=== PATIENT | male | born 1995 ===

== ENCOUNTER 2017-08-23 16:46 | Emergency (ER) | payer BC ==
[2017-08-23 16:58] VITALS: BP 161/88; PULSE 87; RESP 16; TEMP 97.8; O2SAT 100
[2017-08-23] MEDS ORDERED: Tdap Vaccine 0.5 ml Vial (10-64 yrs) IM ONE ×2 (17:20→18:05)
[2017-08-23] MEDS ORDERED: Lidocaine 1% Inj (20ml) IJ STA (17:53)
--- NOTE | 2017-08-23 17:57 | ED PDOC ---
HPI: Head Injury Time Seen by Provider: 08/23/17 17:01 Chief Complaint (Nursing): Abnormal Skin Integrity Chief Complaint (Provider): Abnormal Skin Integrity History Per: Patient, Family (mother) History/Exam Limitations: no limitations Onset/Duration Of Symptoms: Hrs (2), Sudden Onset Additional Complaint(s): 22 year old male presents to the emergency department with mother for an evaluation of a right eyebrow laceration sustained when he accidentally hit his head on a corner wall while playing with his dog. Denies any headache, prior head injury, loss of consciousness, nausea, vomiting or dizziness. Patient states he is not up-to-date with tetanus shot. Per mother at bedside, patient is acting normal. PMD: none provided Past Medical History Reviewed: Historical Data, Nursing Documentation, Vital Signs Vital Signs: Last Vital Signs Temp 97.8 F 08/23/17 16:55 Pulse 87 08/23/17 16:55 Resp 16 08/23/17 16:55 BP 161/88 H 08/23/17 16:55 Pulse Ox 100 08/23/17 16:55 - Medical History PMH: No Chronic Diseases Denies: Chronic Kidney Disease - Surgical History Surgical History: No Surg Hx - Family History Family History: States: Unknown Family Hx - Living Arrangements Living Arrangements: With Family - Social History Current smoker - smoking cessation education provided: No Ex-Smoker (has not smoked in the last 12 months): No Alcohol: None Drugs: Denies - Immunization History Hx Tetanus Toxoid Vaccination: No (unknown) - Allergies Allergies/Adverse Reactions: Allergies Allergy/AdvReac Type Severity Reaction Status Date / Time No Known Allergies Allergy Verified 02/20/14 19:40 Review of Systems ROS Statement: Except As Marked, All Systems Reviewed And Found Negative Eyes: Negative for: Vision Change Gastrointestinal: Negative for: Nausea, Vomiting Neurological: Positive for: Other (right eyebrow laceration). Negative for: Headache, Dizziness (or LOC) Physical Exam - Reviewed Nursing Documentation Reviewed: Yes Vital Signs Reviewed: Yes - Physical Exam Appears: Positive for: Well, Non-toxic, No Acute Distress Head Exam: Positive for: ATRAUMATIC, NORMOCEPHALIC Skin: Negative for: Normal Color, Warm, Dry Eye Exam: Positive for: Normal appearance, EOMI, PERRL. Negative for: Nystagmus , Periorbital swelling, Periorbital tenderness, Conjunctival injection Neck: Positive for: Painless ROM, Supple Cardiovascular/Chest: Positive for: Regular Rate, Rhythm Respiratory: Positive for: Normal Breath Sounds. Negative for: Decreased Breath Sounds, Accessory Muscle Use, Respiratory Distress Gastrointestinal/Abdominal: Positive for: Soft. Negative for: Tenderness, Mass , Distended, Guarding Extremity: Negative for: Deformity Neurologic/Psych: Positive for: Alert, supervisor record press II-XII (intact), Oriented (x3), Mood/ Affect (appropriate), Gait (steady), Other (1cm laceration to lateral aspect of right eyebrow (-) surrounding ecchymosis (-) active bleeding (-) palpable bone deformity). Negative for: Motor/Sensory Deficits, Aphasia, Facial Droop - ECG O2 Sat by Pulse Oximetry: 100 (RA) Pulse Ox Interpretation: Normal Medical Decision Making Medical Decision Making: Initial Impression: Laceration S/P head injury Initial Plan: * Adacel 0.5ml IM * Lidocaine 1% 2ml IJ Time: 172 --Provider explained benefits and risks of closing wound with either Dermabond or stitches. Patient stated he preferred to have stitches with verbal consent obtained. Time: 1819 --Laceration repair performed. See procedure note. Time: 183 --Upon provider reevaluation, patient is feeling better, medically stable and requires no further treatment in the ED at this time. Neuro examination remains nonfocal. Patient will be discharged home. Counseling was provided and all questions were answered regarding diagnosis and need for follow up with PMD or ED for suture removal in 5 days. There is agreement to discharge plan. Return if symptoms persist or worsen. Clinical Impression: Facial Laceration Scribe Attestation: Documented by Priscila Abdi, acting as a scribe for Rosy Herbert PA-C. Provider Scribe Attestation: All medical record entries made by the Scribe were at my direction and personally dictated by me. I have reviewed the chart and agree that the record accurately reflects my personal performance of the history, physical exam, medical decision making, and the department course for this patient. I have also personally directed, reviewed, and agree with the discharge instructions and disposition. Procedures - Time-Out Type of Procedure: laceration repair Site of Procedure: right eyebrow Correct Patient (with visual ID + MR# on ID Band): Yes Correct Procedure: Yes Correct Site Marked: Yes X-Ray Marked: No Medication Reconciliation / Bloodwork / Allergies Checked: Yes PA/Tech: Keon - Laceration/Wound Repair laceration repair Wound Length (cm): 1 Wound's Depth, Shape: superficial Wound Explored: clean Irrigated w/ Saline (ccs): 30 Betadine Prep?: No Anesthesia: 1% Lidocaine Volume Anesthetic (ccs): 2 Wound Debrided: minimal Wound Repaired With: Sutures (2) Suture Size/Type: 6:0, proline Number of Sutures: 2 Layer Closure?: No Wound Complexity: Simple Sterile Dressing Applied?: No Splint Applied?: No Sling Applied?: No Disposition - Clinical Impression Clinical Impression: Facial laceration - Patient ED Disposition Is Patient to be Admitted: No Counseled Patient/Family Regarding: Diagnosis, Need For Followup - Disposition Referrals: [facility] [Outside] Disposition: Routine/Home Disposition Time: 18:32 Condition: IMPROVED Additional Instructions: SUTURE REMOVAL IN 5 DAYS. Instructions: Laceration Repair With Stitches (DC) Forms: [employer] ([place] Citizen) Print Language: [place]
== END 2017-08-23 18:45 | disposition home or self-care (01) ==
LOC: H.ER 16:46
DX: S01.81XA Laceration without foreign body of other part of head, initial encounter (principal); W22.8XXA Striking against or struck by other objects, initial encounter; Y92.89 Other specified places as the place of occurrence of the external cause

== ENCOUNTER 2017-08-28 14:47 | Emergency (ER) | payer BC ==
[2017-08-28 15:25] VITALS: BP 146/85; PULSE 87; RESP 18; TEMP 97.6; O2SAT 99
--- NOTE | 2017-08-28 15:36 | ED PDOC ---
HPI: General Adult Time Seen by Provider: 08/28/17 15:27 Chief Complaint (Nursing): Wound Check Chief Complaint (Provider): SUTURE REMOVAL History Per: Patient (22 Y/O MALE HERE FOR SUTURE REMOVAL OF WOUND REPAIRED RIGHT EYEBROW. NO OTHER COMPLAINT.) Past Medical History Reviewed: Historical Data, Nursing Documentation, Vital Signs Vital Signs: Last Vital Signs Temp 97.6 F 08/28/17 15:23 Pulse 87 08/28/17 15:23 Resp 18 08/28/17 15:23 BP 146/85 08/28/17 15:23 Pulse Ox 99 08/28/17 15:23 - Medical History PMH: Denies: Chronic Kidney Disease - Family History Family History: States: Unknown Family Hx - Immunization History Hx Tetanus Toxoid Vaccination: No (unknown) - Allergies Allergies/Adverse Reactions: Allergies Allergy/AdvReac Type Severity Reaction Status Date / Time No Known Allergies Allergy Verified 02/20/14 19:40 Review of Systems ROS Statement: Except As Marked, All Systems Reviewed And Found Negative Physical Exam - Reviewed Nursing Documentation Reviewed: Yes Vital Signs Reviewed: Yes - Physical Exam Appears: Positive for: Well, Non-toxic, No Acute Distress Head Exam: Positive for: ATRAUMATIC, NORMAL INSPECTION, NORMOCEPHALIC Skin: Positive for: Normal Color, Warm, DRY Eye Exam: Positive for: EOMI, Normal appearance, PERRL ENT: Positive for: Normal ENT Inspection Neck: Positive for: Normal, Painless ROM Cardiovascular/Chest: Positive for: Regular Rate, Rhythm Respiratory: Positive for: CNT, Normal Breath Sounds Gastrointestinal/Abdominal: Positive for: Normal Exam, Bowel Sounds, Soft Back: Positive for: Normal Inspection Extremity: Positive for: Normal ROM Neurologic/Psych: Positive for: Alert, Oriented - ECG O2 Sat by Pulse Oximetry: 99 - Progress ED Course And Treament: SUTURES REMOVED WITHOUT DIFFICULTY Disposition - Clinical Impression Clinical Impression: Visit for suture removal - Patient ED Disposition Is Patient to be Admitted: No - Disposition Disposition: Routine/Home Disposition Time: 15:28 Condition: FAIR Instructions: Stitches Removal
== END 2017-08-28 15:50 | disposition home or self-care (01) ==
LOC: H.ER 14:47
DX: Z48.02 Encounter for removal of sutures (principal)